=== PATIENT | male | born 1970 | race African-American/Black ===

== ENCOUNTER 2020-05-10 02:28 | Inpatient (IN) | payer OTHER ==
[2020-05-10] MEDS ORDERED: Propofol 1,000 MG/100 ML VIAL IV ONE (02:52)
[2020-05-10 02:56] LABS: Actual Bicarbonate (HCO3a) 26.1 mEq/L (22-28); Analyzer IN Cardio ER; Base Excess (BEa) -1.9 mEq/L (-2.0 to +3.0); CO2 Tension 57.9 mmHg (35.0-45.0); Calcium, Ionized (arterial) 1.16 mmol/L (1.12-1.30); Carboxyhemoglobin (COHb) 0.1 gm% (0.0-3.0); Hemoglobin (Hb) 14.6 g/dL (14.0-18.0); O2 Tension (PaO2), arterial 287.7 mmHg (80.0-100.0); Potassium - ABG Lab 3.99 mmol/L (3.70-5.30); pH, Arterial 7.27 (7.35-7.45)
[2020-05-10 02:57] LABS: ALV-art Gradient 352.925 mmHg (0-20); Puncture Site RRA
[2020-05-10 03:12] LABS: #Lymphocytes 1.1 thou/uL (1.20-3.40); #Monocytes 0.2 thou/uL (0.11-0.59); %Basophils 0.5 % (0.0-1.0); %Eosinophils 0.4 % (0.0-10.0); %Lymphocytes 12.8 % (21.0-51.0); %Monocytes 2.5 % (0.0-10.0); %Neutrophils 83.8 % (42.0-75.0); Hemoglobin 13.7 g/dL (14.0-18.0); Mean Corpuscular HGB CONC 32.6 g/dL (32.0-36.0); Mean Corpuscular Hemoglobin 30.1 pg (27.0-31.0); Mean Corpuscular Volume 92.3 fL (78.0-98.0); Mean Platelet Volume 9.5 fL (7.4-10.4); Platelet Count 158 thou/uL (130-400); Red Blood Cell (RBC) Count 4.55 mill/uL (4.70-6.10); White Blood Cell (WBC) Count 8.4 thou/uL (4.8-10.8)
[2020-05-10 03:20] LABS: INR-International Normal Ratio 1.1; PTT 30.6 sec (22.9-36.1); Prothrombin Time 14.7 sec (12.0-14.7)
[2020-05-10] MEDS ORDERED: niCARdipine 20MG In NaCl 20 MG/200 ML BAG ONE (03:29)
[2020-05-10 03:36] LABS: ALT (SGPT) 23 U/L (8-55); AST (SGOT) 30 U/L (5-34); Albumin 4.1 g/dL (3.5-5.0); Alkaline Phosphatase 73 U/L (40-110); Anion Gap 19 mmol/L (10-20); BUN (Urea Nitrogen) 20 mg/dL (8.4-25.7); Bilirubin, Total 0.2 mg/dL (0.2-1.2); CK (CPK) 397 U/L (30-200); Calc. Creatinine Clearance 0 mL/min (70-130); Calcium 8.6 mg/dL (7.8-10.44); Carbon Dioxide 22 mmol/L (22-29); Chloride 106 mmol/L (98-107); Estimated GFR-MDRD 57; Globulin 3.4 g/dL (2.4-3.5); Glucose 118 mg/dL (70-105); Potassium 4.7 mmol/L (3.5-5.1); Protein, Total 7.5 g/dL (6.0-8.3); Sodium 142 mmol/L (136-145)
[2020-05-10 03:46] LABS: CKMB 5.6 ng/mL (0-6.6)
--- NOTE | 2020-05-10 04:12 | PDOC.HHP ---
Hospitalist HPI - History of Present Illness cva evaluation History of Present Illness: most of the history taken from ems and emr. during my evaluation patient was sedated and on MV. no family members where present at the moment of my evaluation. Case of an 49y/o male with a pmxh of htn, hx of cva and seizures, patient brought to the ER by helicopter as a transfer from [place]. Transferring physician reported that the patient was last seen normal by his at 5 PM yesterday (9-1/2 hours ago). At 10:00 she reported that he was complaining of severe headache and his speech seemed impaired. She then elected to call 911. On his arrival to the outside hospital, he had right-sided facial droop and left- sided hemiparesis. He was taken to CAT scan where he had a seizure. He does have a history of seizures and takes Keppra. CT scan was able to be obtained which showed an subacute right posterior parietal infarct. Patient had several additional seizures requiring multiple doses of benzodiazepines. Eventually his respiratory drive was depressed and he was intubated. at arrival interventional neurologist was called, patient underwent CTA which showed no occlusion, patient has a hx of using elliquis and he was out of the TPA window for those reason TPA was not given. hospitalist was called for further evaluation and management. Hospitalist ROS - Review of Systems ROS unobtainable: due to endotracheal tube Hospitalist History - Past Surgical History Other Surgical History: unable to asses due to MV - Family History Other Family History: unable to asses due to MV - Social History Other Social History: unable to asses due to MV - Exam General Appearance: NAD General - other findings: sedated Eye: PERRL, anicteric sclera ENT: normocephalic atraumatic, no oropharyngeal lesions Neck: supple, symmetric, no JVD Heart: RRR, no murmur, no gallops, no rubs Respiratory: CTAB, no wheezes, no rales, no ronchi Gastrointestinal: soft, non-tender, non-distended, normal bowel sounds Extremities: no cyanosis, no clubbing, no edema Skin: normal turgor, no lesions, no rashes Neurological - other findings: sedated Musculoskeletal: normal tone, no muscle wasting Psychiatric - other findings: sedated Hospitalist Results - Labs Result Diagrams: 05/10/20 02:50 05/10/20 02:50 Lab results: WBC 8.4 thou/uL (4.8-10.8) 05/10/20 02:50 Hgb 13.7 g/dL (14.0-18.0) L 05/10/20 02:50 Hct 42.0 % (42.0-52.0) 05/10/20 02:50 MCV 92.3 fL (78.0-98.0) 05/10/20 02:50 Plt Count 158 thou/uL (130-400) 05/10/20 02:50 Neutrophils % 83.8 % (42.0-75.0) H 05/10/20 02:50 ABG pH 7.27 (7.35-7.45) L 05/10/20 02:50 ABG pCO2 57.9 mmHg (35.0-45.0) H 05/10/20 02:50 ABG pO2 287.7 mmHg (80.0-100.0) H 05/10/20 02:50 Sodium 142 mmol/L (136-145) 05/10/20 02:50 Potassium 4.7 mmol/L (3.5-5.1) 05/10/20 02:50 Chloride 106 mmol/L (98-107) 05/10/20 02:50 Carbon Dioxide 22 mmol/L (22-29) 05/10/20 02:50 BUN 20 mg/dL (8.4-25.7) 05/10/20 02:50 Creatinine 1.56 mg/dL (0.7-1.3) H 05/10/20 02:50 Glucose 118 mg/dL (70-105) H 05/10/20 02:50 Calcium 8.6 mg/dL (7.8-10.44) 05/10/20 02:50 Total Bilirubin 0.2 mg/dL (0.2-1.2) 05/10/20 02:50 AST 30 U/L (5-34) 05/10/20 02:50 ALT 23 U/L (8-55) 05/10/20 02:50 Alkaline Phosphatase 73 U/L (40-110) 05/10/20 02:50 Creatine Kinase 397 U/L (30-200) H 05/10/20 02:50 CK-MB (CK-2) 5.6 ng/mL (0-6.6) 05/10/20 02:50 Troponin I 0.032 ng/mL (< 0.028) H 05/10/20 02:50 Serum Total Protein 7.5 g/dL (6.0-8.3) 05/10/20 02:50 Albumin 4.1 g/dL (3.5-5.0) 05/10/20 02:50 Hospitalist H&P A/P - Problem (1) Respiratory failure requiring intubation Code(s): J96.90 - RESPIRATORY FAILURE, UNSP, UNSP W HYPOXIA OR HYPERCAPNIA Status: Acute (2) CVA (cerebral vascular accident) Code(s): I63.9 - CEREBRAL INFARCTION, UNSPECIFIED Status: Acute (3) Seizures Code(s): R56.9 - UNSPECIFIED CONVULSIONS Status: Acute (4) HTN (hypertension) Code(s): I10 - ESSENTIAL (PRIMARY) HYPERTENSION Status: Acute (5) History of CVA (cerebrovascular accident) Code(s): Z86.73 - PRSNL HX OF TIA (TIA), AND CEREB INFRC W/O RESID DEFICITS Status: Acute - Plan Plan: case of an 49y/o male with stated pmhx who presented to hospital due to cva + seziures respiratory failure requiring MV - intuabted to protect air way due to decreased GCS - pulmonology consulted CVA - hx of cva in the past - hx of slur speech and L sided hemiparesis - cta negative for occlusion - ct negative for bleed - will start with rectal asa for secondary prevention - statin for secondary prevention - neurologist consulted - will get MRI -2 decho - out of tpa window, clean cta, hx of xarelto use - reason for xarelto use, unclear mati seizures - multiple episode of seizures, required multiple doses of ativan - ativan prn - should be covered with sedation protocol - eeg - neurologist evaluation - keppra iv htn urgency - b/p over 220 systololic - started on cardene drip - mill maitain systolic b/p around 180 for permissive hypertension
[2020-05-10 04:23] LABS: Amphetamine Not Detected (NotDetected); Barbiturates Screen Not Detected (NotDetected); Benzodiazepine Screen Not Detected (NotDetected); Cocaine Metabolite Screen Not Detected (NotDetected); Medtox Control Line Valid? VALID (VALID); Medtox Reader # READER 1; Methadone Not Detected (NotDetected); Methamphetamine Not Detected (NotDetected); Opiate Screen Not Detected (NotDetected); Oxycodone Screen Not Detected (NotDetected); Phencyclidine (PCP) Not Detected (NotDetected); THC/Cannabinoid Screen Not Detected (NotDetected); Tricyclic Screen Not Detected (NotDetected)
[2020-05-10] MEDS ORDERED: DISCONTINUE PREVIOUS NARCOTIC PAIN MEDICATIONS AND BENZODIAZEPINES FS SCH (05:15)
[2020-05-10] MEDS ORDERED: Fentanyl BOLUS 250 ML IVPB PRN (05:15)
[2020-05-10] MEDS ORDERED: Lorazepam 2 MG/ML VIAL SLOW IVP PRN (05:15)
[2020-05-10] MEDS ORDERED: Propofol BOLUS 1,000 MG/100 ML VIAL IV PRN (05:15)
[2020-05-10] MEDS ORDERED: fentaNYL Citrate/PF 2,000 MCG in Sodium Chloride 0.9% 60 ML IV SCH (05:15)
[2020-05-10] MEDS ORDERED: Morphine 2 MG/ML VIAL SLOW IVP PRN (05:15)
[2020-05-10 05:57] VITALS: BMI 26.1
[2020-05-10] MEDS: Sodium Chloride 0.9% 1,000 ML IV SCH ×2 (06:35→22:44)
[2020-05-10 07:03] LABS: SARS-CoV-2 NAA Rapid Test Not Detected (NotDetected)
[2020-05-10] MEDS ORDERED: niCARdipine 25 MG in Sodium Chloride 0.9% 250 ML 240 ML IVPB SCH (07:30)
--- NOTE | 2020-05-10 08:03 | CT ---
PRELIMINARY REPORT/[facility]/EMERGENCY AFTER HOURS PROCEDURE: Receipt of this report by the clinical staff was confirmed with Monica Díaz MD by Roopa Nunez on May 10, 2020 02:49:00 CLIENT SUPPORT MANAGER. Addendum electronically signed by Kerry Nunez on May 10, 2020 2:50:05 AM CLIENT SUPPORT MANAGER EXAM: CT Head Without Intravenous Contrast. CLINICAL HISTORY: *LEVEL 1 STROKE* M49, LSN AT 1700. PATIENT COMPLAINED OF BLAIR AT 2200, STATED SPEECH WAS SLURRED, AMS, PATIENT STARTED SEIZING AT OTHER FACILITY WAS INTUBATED TECHNIQUE: Axial computed tomography images of the head/brain without intravenous contrast. COMPARISON: None provided. FINDINGS: BRAIN: No acute intraparenchymal hemorrhage. No mass lesion. No CT evidence for acute territorial infarct. N o midline shift or extra-axial collection. Geographic region of hypodensity in the right parietal lo be with ex vacuo dilatation of the right lateral ventricle. VENTRICLES: No hydrocephalus. ORBITS: The orbits are unremarkable. SINUSES AND MASTOIDS: The paranasal sinuses and mastoid air cells are clear. SOFT TISSUES: No significant facial or scalp soft tissue swelling evident. No radiopaque foreign body is seen. BONES: No acute skull fracture. IMPRESSION: No acute intracranial abnormality. Remote infarct in the right parietal lobe. ELECTRONICALLY SIGNED BY: Anibal Reed MD May 10, 2020 2:44:04 AM CLIENT SUPPORT MANAGER This report is intended for review by the ordering physician only, in accordance of law. If you recei ve this report in error, please call [facility] at [phone]. FINAL REPORT CT BRAIN WITHOUT CONTRAST: I agree with the preliminary report given by [facility]. POS: OFF
[2020-05-10 08:32] LABS: Actual Bicarbonate (HCO3a) 24.3 mEq/L (22-28); Base Excess (BEa) 1.5 mEq/L (-2.0 to +3.0); CO2 Tension 33.1 mmHg (35.0-45.0); Calcium, Ionized (arterial) 1.16 mmol/L (1.12-1.30); Carboxyhemoglobin (COHb) 0.6 gm% (0.0-3.0); Hemoglobin (Hb) 15.6 g/dL (14.0-18.0); O2 Tension (PaO2), arterial 97.4 mmHg (80.0-100.0); Potassium - ABG Lab 3.31 mmol/L (3.70-5.30); pH, Arterial 7.48 (7.35-7.45)
[2020-05-10 08:39] LABS: ALV-art Gradient 146.425 mmHg (0-20); Puncture Site RRA
[2020-05-10] MEDS: Famotidine/PF 20 mg/2ml Vial SLOW IVP SCH ×2 (09:10→22:45)
--- NOTE | 2020-05-10 09:10 | CT ---
PRELIMINARY REPORT/[facility]/EMERGENCY AFTER HOURS PROCEDURE Receipt of this report by the clinical staff was confirmed with Monica Díaz MD by Roopa Nunez on May 10, 2020 03:01:00 TRAINING PROGRAM MANAGER. Addendum electronically signed by Kerry Nunez on May 10, 2020 3:01:29 AM TRAINING PROGRAM MANAGER EXAM: CTA Head and Neck with Intravenous Contrast. CLINICAL HISTORY: *LEVEL 1 STROKE* M49, LSN AT 1700. PATIENT COMPLAINED OF BLAIR AT 2200, STATED SPEECH WAS SLURRED, AMS, PATIENT STARTED SEIZING AT OTHER FACILITY WAS INTUBATED. TECHNIQUE: Axial CTA images of the head and neck performed with intravenous contrast. Two-dimensional MIP and/or three-dimensional MIP and volume rendered reformations were performed. Note: Per PQRS, the description of internal carotid artery percent stenosis, including 0 percent or n ormal exam, is based on [place] Symptomatic Carotid Endarterectomy Trial (NASCET) criteria. CONTRAST: With; ISOVUE 370,100mL COMPARISON: None provided. FINDINGS: CTA NECK: COMMON CAROTID ARTERIES No significant stenosis. No dissection or occlusion. INTERNAL CAROTID ARTERIES No stenosis by NASCET criteria. No dissection or occlusion. VERTEBRAL ARTERIES No significant stenosis. No dissection or occlusion. CTA HEAD: ANTERIOR CEREBRAL ARTERIES No significant stenosis. No occlusion. No aneurysm. MIDDLE CEREBRAL ARTERIES No significant stenosis. No occlusion. No aneurysm. POSTERIOR CEREBRAL ARTERIES No significant stenosis. No occlusion. No aneurysm. BASILAR ARTERY No significant stenosis. No occlusion. No aneurysm. OTHER: SOFT TISSUES No acute finding. No masses or lymphadenopathy. An endotracheal tube and nasogastric tube are in diaz ce. BONES No acute osseous abnormality. Multilevel degenerative disc disease. IMPRESSION: Unremarkable CTA of the head and neck. ELECTRONICALLY SIGNED BY: Anibal Reed MD May 10, 2020 2:56:22 AM TRAINING PROGRAM MANAGER This report is intended for review by the ordering physician only, in accordance of law. If you recei ve this report in error, please call [facility] at [phone]. FINAL REPORT EXAM: CT ANGIOGRAM OF THE HEAD AND NECK INDICATION: Level 1 stroke. COMPARISON: None. TECHNIQUE: CT angiogram of the head and neck are performed in the axial plane. Three-dimensional refo rmatted images are submitted for interpretation. FINDINGS: CTA OF THE HEAD WITH AND WITHOUT CONTRAST: POSTCONTRAST CT OF BRAIN: Pathologic enhancement: No pathologic enhancement the brain. Postcontrast soft tissue neck CT: Aerodigestive tract:Aerodigestive tract is patent. No mucosal abnormality. Sinuses: Adequate aeration. Orbits: Bilateral ocular lenses are appropriately located. Both globes are intact. Retrobulbar fat is preserved. Symmetric attenuation the optic nerves and ocular rectus muscles. Salivary glands:Appropriate attenuation. Thyroid gland: Appropriate attenuation. Lymph nodes: No evidence of lymphadenopathy by size criteria. Paraspinal muscles: Symmetric attenuation of the sternocleidomastoid muscles. Appropriate attenuation of the paraspinal muscles. Cervical spine:Vertebral body height is maintained. No fracture. No significant central canal stenosi s or significant neural foraminal narrowing. Limited evaluation by technique. Upper mediastinum and lung apices: No acute abnormality. CTA OF THE NECK WITH CONTRAST: Aorta: Appropriate enhancement and luminal diameter. Right carotid artery: Appropriate enhancement and luminal diameter. Left carotid: Appropriate enhancement and luminal diameter. Subclavian arteries:Patent and symmetric. Vertebral arteries:Patent throughout their course in the neck. Codominant vertebral arteries. CTA OF THE BRAIN: Intracranial internal carotid arteries:Appropriate enhancement and luminal diameter. Anterior circulation: Appropriate enhancement and luminal diameter. Intracranial vertebral arteries: Appropriate enhancement and luminal diameter. Posterior circulation: Appropriate enhancement and luminal diameter. IMPRESSION: 1. This report is in agreement with initial report by [facility]. 2. No hemodynamically significant stenosis, occlusion or aneurysmal formation. Transcribed Date/Time: 05/10/2020 9:22 AM
[2020-05-10] MEDS ORDERED: Iopamidol-370 76% 500 ML 1 ML ONE (10:16)
[2020-05-10] MEDS: levETIRAcetam in NS 1,500 MG in Premix Bag 1 BAG IVPB SCH ×2 (10:34→22:44)
[2020-05-10] MEDS ORDERED: Lorazepam 2 MG/ML VIAL ONE (10:55)
[2020-05-10] MEDS ORDERED: Lorazepam 2 MG/ML VIAL SLOW IVP SCH (11:00)
[2020-05-10] MEDS ORDERED: levETIRAcetam in NS 1,500 MG in Premix Bag 1 BAG IVPB SCH (11:00)
[2020-05-10] MEDS ORDERED: FOSPHENYTOIN SODIUM IVPB SCH (11:30)
[2020-05-10] MEDS ORDERED: SODIUM CHLORIDE 0.9% IVPB SCH (11:30)
[2020-05-10] MEDS: Aspirin 300 MG Suppository PR SCH (13:20)
[2020-05-10] MEDS: Propofol 1,000 MG/100 ML VIAL IV PRN ×2 (13:37→22:44)
[2020-05-10] MEDS ORDERED: Acetaminophen 650 MG/20.3 ML UDCUP PER TUBE PRN (13:43)
--- NOTE | 2020-05-10 14:29 | CON ---
NEUROLOGY CONSULTATION DATE OF CONSULTATION: 05/10/2020 REASON FOR CONSULTATION: CVA/focal status epilepticus. HISTORY OF PRESENT ILLNESS: The patient is currently sedated and intubated, and there is no family at bedside, so history was obtained from review of the medical records and from the nursing staff. Mr. Jorge is a 49-year-old male with medical history significant for hypertension, history of prior CVA, and seizure disorder, presented to the emergency room by helicopter as a transfer from [place]. The patient was last seen normal by his around 5 p.m. yesterday 9-1/2 hours ago; at 10 p.m., he reported he was complaining of severe headache with slurred speech. She called 911, and then they arrived. He also had right facial droop and left hemiparesis. He was taken to the CT scan where he had a seizure. He does have history of seizures and he takes Keppra for seizure prophylaxis. CT scan was obtained, which showed subacute right posterior parietal infarct. The patient had several seizures and required multiple doses of benzodiazepine, and he was intubated and sedated to protect his airway. He underwent a CTA, which did not reveal any occlusion. He has history of using Eliquis and was out of the window for tPA, so tPA was not given. Neurology was called for further evaluation. EEG was done, which was consistent with focal right status epilepticus. REVIEW OF SYSTEMS: Unobtainable due to the patient's mental status and due to endotracheal tube_. PAST SURGICAL HISTORY: None. FAMILY HISTORY: No significant family history. SOCIAL HISTORY: . Lives with his HOME MEDICATIONS: Not known. ALLERGIES: NKDA PHYSICAL EXAMINATION: 175/106 , pulse 80, and respiratory rate 18. General Appearance: NAD General - other findings: sedated Eye: PERRL, anicteric sclera ENT: normocephalic atraumatic, no oropharyngeal lesions Neck: supple, symmetric, no JVD Heart: RRR, no murmur, no gallops, no rubs Respiratory: CTAB, no wheezes, no rales, no ronchi Gastrointestinal: soft, non-tender, non-distended, normal bowel sounds Extremities: no cyanosis, no clubbing, no edema Skin: normal turgor, no lesions, no rashes Neurological - Mental status, the patient was intubated and sedated. Does not follow commands. Does not maintain eye contact. Cranial nerves; pupils 4 mm, round and reactive to light. Face symmetric. Tongue midline. Corneals positive. Cough positive. Motor, muscle tone and bulk are normal. No spontaneous movement of all 4 extremities seen. Sensory withdraws all 4 extremities to nailbed pressure. Gait deferred due to the patient's safety reasons. Cerebellar could not be performed secondary to sedation. DATA REVIEWED: I reviewed the labs, which were essentially unremarkable. Head CT was reviewed, which did not reveal any acute intracranial pathology. There was a geographical region hypodensity in the right parietal lobe with ex vacuo dilatation of the right lateral ventricle. EEG reviewed, which was consistent with focal status epilepticus characterized by continuous spike and wave discharges emanating from the right cerebral hemisphere. WBC 8.4 thou/uL (4.8-10.8) 05/10/20 02:50 Hgb 13.7 g/dL (14.0-18.0) L 05/10/20 02:50 Hct 42.0 % (42.0-52.0) 05/10/20 02:50 MCV 92.3 fL (78.0-98.0) 05/10/20 02:50 Plt Count 158 thou/uL (130-400) 05/10/20 02:50 Neutrophils % 83.8 % (42.0-75.0) H 05/10/20 02:50 ABG pH 7.27 (7.35-7.45) L 05/10/20 02:50 ABG pCO2 57.9 mmHg (35.0-45.0) H 05/10/20 02:50 ABG pO2 287.7 mmHg (80.0-100.0) H 05/10/20 02:50 Sodium 142 mmol/L (136-145) 05/10/20 02:50 Potassium 4.7 mmol/L (3.5-5.1) 05/10/20 02:50 Chloride 106 mmol/L (98-107) 05/10/20 02:50 Carbon Dioxide 22 mmol/L (22-29) 05/10/20 02:50 BUN 20 mg/dL (8.4-25.7) 05/10/20 02:50 Creatinine 1.56 mg/dL (0.7-1.3) H 05/10/20 02:50 Glucose 118 mg/dL (70-105) H 05/10/20 02:50 Calcium 8.6 mg/dL (7.8-10.44) 05/10/20 02:50 Total Bilirubin 0.2 mg/dL (0.2-1.2) 05/10/20 02:50 AST 30 U/L (5-34) 05/10/20 02:50 ALT 23 U/L (8-55) 05/10/20 02:50 Alkaline Phosphatase 73 U/L (40-110) 05/10/20 02:50 Creatine Kinase 397 U/L (30-200) H 05/10/20 02:50 CK-MB (CK-2) 5.6 ng/mL (0-6.6) 05/10/20 02:50 Troponin I 0.032 ng/mL (< 0.028) H 05/10/20 02:50 Serum Total Protein 7.5 g/dL (6.0-8.3) 05/10/20 02:50 Albumin 4.1 g/dL (3.5-5.0) 05/10/20 02:50 Hospitalist H&P A/P - Problem (1) Respiratory failure requiring intubation Code(s): J96.90 - RESPIRATORY FAILURE, UNSP, UNSP W HYPOXIA OR HYPERCAPNIA Status: Acute (2) CVA (cerebral vascular accident) Code(s): I63.9 - CEREBRAL INFARCTION, UNSPECIFIED Status: Acute (3) Seizures Code(s): R56.9 - UNSPECIFIED CONVULSIONS Status: Acute (4) HTN (hypertension) Code(s): I10 - ESSENTIAL (PRIMARY) HYPERTENSION Status: Acute (5) History of CVA (cerebrovascular accident) Code(s): Z86.73 - PRSNL HX OF TIA (TIA), AND CEREB INFRC W/O RESID DEFICITS Status: Acute ASSESSMENT AND PLAN: Mr. Jorge is a 49-year-old male with history significant for seizure disorder and prior cerebrovascular accident, presented with stroke-like symptoms and subclinical status epilepticus confirmed the EEG. Neurochecks every 2 hours. Continue propofol for pharmacologically induced coma. Load with Keppra 3 g IV now and then increase the maintenance dose to 1500 mg IV q.12 hours, also load with fosphenytoin to 20 mg/kg now and then start on a maintenance dose of 100 mg IV q.8 hours, Ativan 4 mg IV now and observe seizure precautions. Ativan 2 mg IV for seizure greater than 2 minutes. He needs a further stroke workup including MRI of the brain and 2D echo. Start aspirin for secondary stroke prevention. Need to be started on high intensity statin. We do not have the capability of continuous video EEG monitoring to manage focal status epilepticus remotely, so the patient needs to be transferred to another facility. The plan and EEG findings were discussed in detail with the nursing staff and also with the primary attending, Dr. Best. Thank you for the consult. Job ID: [id number] [id number]
--- NOTE | 2020-05-10 15:27 | PDOC.DS.DS ---
Provider - Provider Date of Admission: 05/10/20 03:35 Date of Discharge: 05/10/20 Admitting Provider: John Fernandez Consultations: Neurology (Dr. Estrada), Interventional Stroke (Dr. Alegria) Primary Care Physician: OUT OF TOWN Course - Hospital Course Hospital Course: Discharge diagnosis: 1. focal status epilepticus 2. Ischemic cerebrovascular accident 3. Acute respiratory failure 4. COVID-19 PCR test negative Hospital course: Patient is a 49-year-old gentleman who was admitted to the hospital for seizure and cerebrovascular accident after transfer from [place]. He was admitted to the intensive care unit in an intubated state. He received loading doses of Keppra and fosphenytoin. EEG was done and showed focal status epilepticus. He needed transfer to tertiary care center for video EEG continuous monitoring. He has been accepted to [facility] and is awaiting transfer at the time of this dictation. Resuscitation Status: 05/10/20 04:00 Resuscitation Status Routine Resuscitation Status: FULL: Full Resuscitation - Labs Lab Results: 05/10/20 02:50 05/10/20 02:50 Abnormal Lab Results - Last 48 hrs 05/10/20 02:50: ABG pH 7.27 L, ABG pCO2 57.9 H, ABG pO2 287.7 H, ABG O2 Sat (Measured) 99.3 H, ABG Oxyhemoglobin 98.6 H, A-a O2 Gradient 352.925 H 05/10/20 02:50: Creatinine 1.56 H, Creatine Kinase 397 H 05/10/20 02:50: Troponin I 0.032 H 05/10/20 02:50: RBC 4.55 L, Hgb 13.7 L, Neutrophils % 83.8 H, Lymphocytes % 12.8 L, Neutrophils # 7.0 H, Lymphocytes # 1.1 L 05/10/20 08:15: ABG pH 7.48 H, ABG pCO2 33.1 L, ABG O2 Content 21.3 H, A-a O2 Gradient 146.425 H, Potassium 3.31 L - Physical Exam Vitals: Vital Signs (12 hours) Temp Pulse Resp BP Pulse Ox 05/10/20 14:47 81 133/84 05/10/20 13:21 87 175/106 H 05/10/20 12:00 16 05/10/20 10:11 95 155/93 H 05/10/20 10:00 18 05/10/20 08:11 107 H 162/92 H 05/10/20 08:00 99.3 F 19 05/10/20 06:00 99.2 F 18 05/10/20 05:10 100 Weight Admit Weight 182 lb Weight 182 lb 1.629 oz Most Recent Monitor Data Heart Rate from ECG 81 NIBP 121/84 NIBP BP-Mean 96 Respiration from ECG 0 SpO2 100 Physical Exam: The patient was seen and examined on the day of discharge. Plan - Discharge Medications Home Medications: Medication Instructions Recorded Confirmed Type Amiodarone [Cordarone] 1 tab PO DAILY 05/10/20 05/10/20 History Amlodipine [Norvasc] 10 mg PO DAILY 05/10/20 05/10/20 History Apixaban [Eliquis] 5 mg PO BID 05/10/20 05/10/20 History Aspirin [Aspirin EC] 1 tab PO DAILY 05/10/20 05/10/20 History Atorvastatin Calcium 80 mg PO DAILY 05/10/20 05/10/20 History Diltiazem HCl 90 mg PO TID 05/10/20 05/10/20 History Ergocalciferol (Vitamin D2) 1 cap PO ROUTINE 05/10/20 05/10/20 History [Vitamin D2] Famotidine [Pepcid] 20 mg PO DAILY 05/10/20 05/10/20 History Furosemide 40 mg PO DAILY 05/10/20 05/10/20 History Labetalol HCl 300 mg PO Q8HR 05/10/20 05/10/20 History Levothyroxine Sodium 50 mcg PO DAILY 05/10/20 05/10/20 History Lisinopril 10 mg PO DAILY 05/10/20 05/10/20 History Metoprolol Tartrate 100 mg PO BID 05/10/20 05/10/20 History Potassium Chloride 20 meq PO DAILY 05/10/20 05/10/20 History Sertraline HCl 75 mg PO QAM 05/10/20 05/10/20 History cloNIDine HCl 0.1 mg PO TID 05/10/20 05/10/20 History hydrALAZINE HCl 100 mg PO TID 05/10/20 05/10/20 History levETIRAcetam 1,000 mg PO BID 05/10/20 05/10/20 History traZODone HCl [Trazodone HCl] 100 mg PO HS 05/10/20 05/10/20 History Allergies: No Known Drug Allergies Allergy (Unverified 05/10/20 04:14) - Follow up Plan Referrals: [facility],OUT OF [Primary Care Provider] - 10 Days Disposition: OTHER HOSPITAL INPT
--- NOTE | 2020-05-10 15:35 | PDOC.EEG ---
Neurology EEG Report - Report Report: This EEG was performed using 24 channel [employer] video digital EEG machine with 24 disc electrodes. This was an extended 5 hours 47 minutes of inpatient video EEG recording. Digital analysis of the EEG was done for Robert and seizure detection which revealed abnormalities Background: The posterior background rhythm is not observed Hyperventilation: Not performed. Photic stimulation. Bioccipital symmetric response not seen with photic stimulation. EEG diagnosis: Pseudo-periodic epilepstic discharges seen emanating from the right cerebral hemisphere. Intermittent irregular theta delta activity seen during the recording Absence of posterior background rhythm. Clinical interpretation: This EEG is consistent with ictal activity emanating from the right in the setting of moderate generalized nonspecific cerebral dysfunction. Critical result was discussed with the primary attending Dr. Best and also the nursing staff and .
[2020-05-10] MEDS: Fosphenytoin Sodium 100 MG in Sodium Chloride 0.9% 50 ML IVPB SCH ×2 (17:22→17:45)
--- NOTE | 2020-05-10 22:10 | CON ---
DATE OF CONSULTATION: SUBJECTIVE: A 49-year-old male, who was transferred here from [place] for reported CVA and seizures. He has pre-existing seizure disorder. He is felt to intermittently still be seizing. CT scan did not show a stroke. He is intubated and unable to give a history. PAST MEDICAL HISTORY: 1. Remarkable for seizure disorder. 2. History of hypertension. 3. History of CVA in the past. FAMILY HISTORY: Unknown. SOCIAL HISTORY: Unknown. REVIEW OF SYSTEMS: Not obtainable. PHYSICAL EXAMINATION: VITAL SIGNS: Heart rate in the 70s, blood pressure 120/74, respiratory rate is per mechanical ventilation, oximetry is 100%. HEENT: Pupils react. Sclerae are anicteric. NECK: Without lymphadenopathy. LUNGS: Clear. HEART: Regular rhythm. ABDOMEN: Soft. EXTREMITIES: Without asymmetry or edema. He is sedated for ventilation. DIAGNOSTIC DATA: Continuous EEG monitoring being done. White count 8.4, hemoglobin 13.7, platelets 158. Electrolytes are normal. Creatinine is 1.56. CPK 397. IMPRESSION: 1. Status epilepticus. 2. History of CVA. I am told he is being transferred to [facility] in [place] since his seizures are refractory. He is stable for transfer in my opinion. Job ID: [id number]
[2020-05-10] MEDS: Atorvastatin Calcium 40 MG TAB PO SCH (22:45)
[2020-05-11] MEDS: Lorazepam 2 MG/ML VIAL SLOW IVP PRN ×5 (01:05→22:04)
[2020-05-11] MEDS: Fosphenytoin Sodium 100 MG in Sodium Chloride 0.9% 50 ML IVPB SCH ×5 (01:07→17:19)
[2020-05-11 04:02] LABS: ALT (SGPT) 15 U/L (8-55); AST (SGOT) 16 U/L (5-34); Albumin 3.1 g/dL (3.5-5.0); Alkaline Phosphatase 45 U/L (40-110); Anion Gap 13 mmol/L (10-20); BUN (Urea Nitrogen) 22 mg/dL (8.4-25.7); Bilirubin, Total 0.4 mg/dL (0.2-1.2); Calc. Creatinine Clearance 49 mL/min (70-130); Calcium 8.4 mg/dL (7.8-10.44); Carbon Dioxide 24 mmol/L (22-29); Cardiac Risk 2.5 (Less than 4.5); Chloride 110 mmol/L (98-107); Cholesterol 83 mg/dl (< 200 Desired); Estimated GFR-MDRD 41; Glucose 104 mg/dL (70-105); HDL Cholesterol 33 mg/dL (>60 Neg Risk); LDL Cholesterol, Calculated 38 mg/dL; Magnesium 1.6 mg/dL (1.6-2.6); Potassium 3.3 mmol/L (3.5-5.1); Protein, Total 6.1 g/dL (6.0-8.3); Sodium 144 mmol/L (136-145); Triglycerides 60 mg/dL (Less than 150)
[2020-05-11 04:14] LABS: Eosinophils 2 % (0-10); Hemoglobin 12.8 g/dL (14.0-18.0); Lymphocytes 19 % (21-51); MDiff Complete? YES; Mean Corpuscular HGB CONC 33.7 g/dL (32.0-36.0); Mean Corpuscular Hemoglobin 31.2 pg (27.0-31.0); Mean Corpuscular Volume 92.5 fL (78.0-98.0); Monocytes 9 % (0-10); Neutrophil 69 % (42-75); Platelet Count 144 thou/uL (130-400); Platelet Morphology Comment Appears Adequate; Reactive Lymphocytes 1 % (0-10); Red Blood Cell (RBC) Count 4.09 mill/uL (4.70-6.10); White Blood Cell (WBC) Count 6.7 thou/uL (4.8-10.8)
[2020-05-11] MEDS: Propofol 1,000 MG/100 ML VIAL IV PRN ×4 (05:54→21:19)
[2020-05-11] MEDS: Sodium Chloride 0.9% 1,000 ML IV SCH ×2 (05:56→17:17)
[2020-05-11] MEDS: Aspirin 300 MG Suppository PR SCH (08:10)
[2020-05-11] MEDS: Famotidine/PF 20 mg/2ml Vial SLOW IVP SCH ×2 (08:10→19:57)
[2020-05-11] MEDS: levETIRAcetam in NS 1,500 MG in Premix Bag 1 BAG IVPB SCH ×2 (08:10→19:56)
[2020-05-11 10:13] VITALS: BP 134/99
--- NOTE | 2020-05-11 10:23 | MRI ---
Exam: Brain MRI without contrast HISTORY: Evaluate for stroke COMPARISON: None FINDINGS: Calvarial marrow signal intensity: Appropriate T1 signal Gradient echo sequence: No hemorrhage Brain parenchyma: Encephalomalacia and gliosis involving the right occipital parietal and temporal re gion. The cerebrum is unremarkable. Cortical estrada-white matter differentiation: With the exception of the area of encephalomalacia and gl iosis, estrada-white matter differentiation is preserved. Restricted diffusion: Central arterial flow voids are maintained. Absent restricted diffusion White matter signal intensities:Minimal T2, FLAIR white matter hyperintensities due to chronic small vessel ischemic changes Sinuses: Bilateral ethmoid air cell and frontal sinus mucosal thickening. There is bilateral sphenoid sinus mucosal thickening along with an air-fluid level in the left and right sinus. Minimal opacification of the mastoid air cells. IMPRESSION: 1. Encephalomalacia and gliosis involving the posterior right cerebrum due to remote insult. 2. No evidence of restricted diffusion. No evidence of acute infarction.
--- NOTE | 2020-05-11 10:48 | CT ---
PRELIMINARY REPORT/[facility]/EMERGENCY AFTER HOURS PROCEDURE Receipt of this report by the clinical staff was confirmed with Monica Díaz MD by Roopa Nunez on May 10, 2020 03:01:00 SEALING MACHINE OPERATOR. Addendum electronically signed by Kerry Nunez on May 10, 2020 3:01:29 AM SEALING MACHINE OPERATOR EXAM: CTA Head and Neck with Intravenous Contrast. CLINICAL HISTORY: *LEVEL 1 STROKE* M51, LSN AT 1700. PATIENT COMPLAINED OF BLAIR AT 2200, STATED SPEECH WAS SLURRED, AMS, PATIENT STARTED SEIZING AT OTHER FACILITY WAS INTUBATED. TECHNIQUE: Axial CTA images of the head and neck performed with intravenous contrast. Two-dimensional MIP and/or three-dimensional MIP and volume rendered reformations were performed. Note: Per PQRS, the description of internal carotid artery percent stenosis, including 0 percent or n ormal exam, is based on [place] Symptomatic Carotid Endarterectomy Trial (NASCET) criteria. CONTRAST: With; ISOVUE 370,100mL COMPARISON: None provided. FINDINGS: CTA NECK: COMMON CAROTID ARTERIES No significant stenosis. No dissection or occlusion. INTERNAL CAROTID ARTERIES No stenosis by NASCET criteria. No dissection or occlusion. VERTEBRAL ARTERIES No significant stenosis. No dissection or occlusion. CTA HEAD: ANTERIOR CEREBRAL ARTERIES No significant stenosis. No occlusion. No aneurysm. MIDDLE CEREBRAL ARTERIES No significant stenosis. No occlusion. No aneurysm. POSTERIOR CEREBRAL ARTERIES No significant stenosis. No occlusion. No aneurysm. BASILAR ARTERY No significant stenosis. No occlusion. No aneurysm. OTHER: SOFT TISSUES No acute finding. No masses or lymphadenopathy. An endotracheal tube and nasogastric tube are in diaz ce. BONES No acute osseous abnormality. Multilevel degenerative disc disease. IMPRESSION: Unremarkable CTA of the head and neck. ELECTRONICALLY SIGNED BY: Anibal Reed MD May 10, 2020 2:56:22 AM SEALING MACHINE OPERATOR This report is intended for review by the ordering physician only, in accordance of law. If you recei ve this report in error, please call [facility] at [phone]. FINAL REPORT EXAM: CT ANGIOGRAM OF THE HEAD AND NECK INDICATION: Level 1 stroke. COMPARISON: None. TECHNIQUE: CT angiogram of the head and neck are performed in the axial plane. Three-dimensional refo rmatted images are submitted for interpretation. FINDINGS: CTA OF THE HEAD WITH AND WITHOUT CONTRAST: POSTCONTRAST CT OF BRAIN: Pathologic enhancement: No pathologic enhancement the brain. Postcontrast soft tissue neck CT: Aerodigestive tract:Aerodigestive tract is patent. No mucosal abnormality. Sinuses: Adequate aeration. Orbits: Bilateral ocular lenses are appropriately located. Both globes are intact. Retrobulbar fat is preserved. Symmetric attenuation the optic nerves and ocular rectus muscles. Salivary glands:Appropriate attenuation. Thyroid gland: Appropriate attenuation. Lymph nodes: No evidence of lymphadenopathy by size criteria. Paraspinal muscles: Symmetric attenuation of the sternocleidomastoid muscles. Appropriate attenuation of the paraspinal muscles. Cervical spine:Vertebral body height is maintained. No fracture. No significant central canal stenosi s or significant neural foraminal narrowing. Limited evaluation by technique. Upper mediastinum and lung apices: No acute abnormality. CTA OF THE NECK WITH CONTRAST: Aorta: Appropriate enhancement and luminal diameter. Right carotid artery: Appropriate enhancement and luminal diameter. Left carotid: Appropriate enhancement and luminal diameter. Subclavian arteries:Patent and symmetric. Vertebral arteries:Patent throughout their course in the neck. Codominant vertebral arteries. CTA OF THE BRAIN: Intracranial internal carotid arteries:Appropriate enhancement and luminal diameter. Anterior circulation: Appropriate enhancement and luminal diameter. Intracranial vertebral arteries: Appropriate enhancement and luminal diameter. Posterior circulation: Appropriate enhancement and luminal diameter. IMPRESSION: 1. This report is in agreement with initial report by [facility]. 2. No hemodynamically significant stenosis, occlusion or aneurysmal formation. Transcribed Date/Time: 05/11/2020 10:48 AM
--- NOTE | 2020-05-11 14:13 | PDOC.NEUPN ---
- Subjective Encounter Date: 05/11/20 Subjective: Mr. Jorge continues to remain intubated and sedated. He has been accepted by facility in [place] for continuous video EEG monitoring once a bed becomes available. - Objective Vital Signs & Weight: Vital Signs (12 hours) Temp Pulse Resp BP 05/11/20 12:00 99.4 F 05/11/20 10:12 71 134/99 H 05/11/20 08:00 99.6 F 05/11/20 06:58 68 05/11/20 06:00 16 05/11/20 04:00 98.4 F 17 Weight Admit Weight 182 lb Weight 185 lb 6.54 oz Most Recent Monitor Data Heart Rate from ECG 70 NIBP 134/99 NIBP BP-Mean 110 Respiration from ECG 0 SpO2 100 I&O: 05/10/20 05/11/20 05/12/20 06:59 06:59 06:59 Intake Total 1000 1325.1 Output Total 950 1475 150 Balance 50 -149.9 -150 Result Diagrams: 05/11/20 03:28 05/11/20 03:28 Radiology Reviewed by me: Yes EKG Reviewed by me: Yes ROS - Review of Systems ROS unobtainable: due to endotracheal tube - Medication Medications: Active Medications Generic Name Dose Route Start Last Admin Trade Name Freq PRN Reason Stop Dose Admin Acetaminophen 650 mg 05/10/20 13:43 05/10/20 14:11 Acetaminophen 650 Mg/20.3 Ml Udcup PER TUBE 650 mg Q6H PRN Administration Headache/Fever or Pain Aspirin 300 mg 05/10/20 09:00 05/11/20 08:10 Aspirin 300 Mg Suppository AR 300 mg DAILY PEARL Administration Atorvastatin Calcium 40 mg 05/10/20 21:00 05/10/20 22:45 Atorvastatin Calcium 40 Mg Tab PO 40 mg HS PEARL Administration Famotidine 20 mg 05/10/20 09:00 05/11/20 08:10 Famotidine/Pf 20 Mg/2ml Vial SLOW IVP 20 mg Q12HR PEARL Administration Sodium Chloride 1,000 mls @ 80 mls/hr 05/10/20 04:00 05/11/20 05:56 Normal Saline 0.9% IV 1,000 mls .[id number] PEARL Administration Levetiracetam 1,500 mg/ Device 100 mls @ 200 mls/hr 05/10/20 09:00 05/11/20 08:10 IVPB 100 mls BID PEARL Administration Fosphenytoin Sodium 100 mg/ 52 mls @ 100 mls/hr 05/10/20 18:00 05/11/20 13:32 Sodium Chloride IVPB 52 mls Q6HR PEARL Administration Lorazepam 2 mg 05/10/20 04:00 05/11/20 13:38 Lorazepam 2 Mg/Ml Vial SLOW IVP 2 mg Q15MIN PRN Administration Seizures Propofol 1,000 mg 05/10/20 05:15 05/11/20 11:30 Propofol 1,000 Mg/100 Ml Vial IV 06/09/20 05:15 1,000 mg INF PRN Administration TO ACHIEVE GOAL RASS Protocol - Exam General Appearance: NAD Eye: PERRL ENT: normocephalic atraumatic Neck: supple Respiratory: CTAB Cardiovascular: RRR Gastrointestinal: soft Extremities: no cyanosis Skin: normal turgor Neurological: no new deficit Musculoskeletal: normal tone, no muscle wasting PSYCH: not oriented Results - Labs Result Diagrams: 05/11/20 03:28 05/11/20 03:28 Lab results: WBC 6.7 thou/uL (4.8-10.8) 05/11/20 03:28 Hgb 12.8 g/dL (14.0-18.0) L 05/11/20 03:28 Hct 37.8 % (42.0-52.0) L 05/11/20 03:28 MCV 92.5 fL (78.0-98.0) 05/11/20 03:28 Plt Count 144 thou/uL (130-400) 05/11/20 03:28 Neutrophils % 83.8 % (42.0-75.0) H 05/10/20 02:50 ABG pH 7.48 (7.35-7.45) H 05/10/20 08:15 ABG pCO2 33.1 mmHg (35.0-45.0) L 05/10/20 08:15 ABG pO2 97.4 mmHg (80.0-100.0) 05/10/20 08:15 Sodium 144 mmol/L (136-145) 05/11/20 03:28 Potassium 3.3 mmol/L (3.5-5.1) L 05/11/20 03:28 Chloride 110 mmol/L (98-107) H 05/11/20 03:28 Carbon Dioxide 24 mmol/L (22-29) 05/11/20 03:28 BUN 22 mg/dL (8.4-25.7) 05/11/20 03:28 Creatinine 2.09 mg/dL (0.7-1.3) H 05/11/20 03:28 Glucose 104 mg/dL (70-105) 05/11/20 03:28 Calcium 8.4 mg/dL (7.8-10.44) 05/11/20 03:28 Total Bilirubin 0.4 mg/dL (0.2-1.2) 05/11/20 03:28 AST 16 U/L (5-34) 05/11/20 03:28 ALT 15 U/L (8-55) 05/11/20 03:28 Alkaline Phosphatase 45 U/L (40-110) 05/11/20 03:28 Creatine Kinase 397 U/L (30-200) H 05/10/20 02:50 CK-MB (CK-2) 5.6 ng/mL (0-6.6) 05/10/20 02:50 Troponin I 0.032 ng/mL (< 0.028) H 05/10/20 02:50 Serum Total Protein 6.1 g/dL (6.0-8.3) 05/11/20 03:28 Albumin 3.1 g/dL (3.5-5.0) L 05/11/20 03:28 - Radiology Interpretation MRI - head Additional Comment: MRI of the brain reviewed which was negative for acute intracranial pathology. PN A/P (1) Status epilepticus Code(s): G40.901 - EPILEPSY, UNSP, NOT INTRACTABLE, WITH STATUS EPILEPTICUS Status: Acute (2) HTN (hypertension) Code(s): I10 - ESSENTIAL (PRIMARY) HYPERTENSION Status: Acute (3) History of CVA (cerebrovascular accident) Code(s): Z86.73 - PRSNL HX OF TIA (TIA), AND CEREB INFRC W/O RESID DEFICITS Status: Acute (4) Respiratory failure requiring intubation Code(s): J96.90 - RESPIRATORY FAILURE, UNSP, UNSP W HYPOXIA OR HYPERCAPNIA Status: Acute (5) Seizures Code(s): R56.9 - UNSPECIFIED CONVULSIONS Status: Acute - Plan Daily Plan: PT/OT, DVT proph w/SCDs Mr. Jorge is a 49-year-old male who presented with strokelike symptoms followed by multiple seizures requiring intubation and sedation. EEG performed which confirms right focal status epilepticus. MRI of the brain reviewed which was negative for acute intracranial pathology. EEG showed focal status epilepticus with spike and wave discharges emanating from the right cerebral hemisphere which is the region for old encephalomalacia from the prior stroke. He was given Ativan and loaded with fosphenytoin and Keppra. Neurochecks every 2 hours Observe seizure precautions Ativan 2 mg IV for seizure greater than 2 minutes Continue fosphenytoin 100 mg IV every 8 hours Continue Keppra 1500 mg IV every 12 hours We will repeat EEG today to see if any further adjustment is needed before his transfer to the facility in [place] for continuous video EEG monitoring and ongoing management for status epilepticus. Continue medical management per primary team and pulmonology. Plan discussed with the nursing staff and also with the primary attending Dr. Best.
[2020-05-11] MEDS ORDERED: Lacosamide 400 MG in Sodium Chloride 0.9% 50 ML IVPB SCH (15:15)
--- NOTE | 2020-05-11 15:46 | PRG ---
DATE OF SERVICE: 05/11/2020 SUBJECTIVE: Rafy Jorge has not been transferred yet. Repeat EEG showed some improvement. OBJECTIVE: VITAL SIGNS: Blood pressure 134/99, heart rate 75, respiratory rate 16. LUNGS: Clear. HEART: Regular rhythm. ABDOMEN: Soft. EXTREMITIES: Without edema. LABORATORY DATA: White count 6.7, hemoglobin 12.8, platelets 144. Sodium 144, potassium 3.3, chloride 110, bicarb 24, BUN 22, creatinine 2.09. PH 7.48, CO2 of 33, PO2 of 97. Intake and outputs, negative 149. IMPRESSION: 1. History of CVA. 2. Refractory seizures. 3. Acute on chronic kidney disease. 4. ? component of brain injury secondary to prolonged status. PLAN: Transfer to a center with continuous EEG monitoring per Neurology. He is stable for transfer. Job ID: [id number]
--- NOTE | 2020-05-11 16:06 | PDOC.EEG ---
Neurology EEG Report - Report Report: This EEG was performed using 24 channel Cenzic video digital EEG machine with 24 disc electrodes. This was an extended 2 hours 4 minutes of inpatient video EEG recording. Digital analysis of the EEG was done for Robert and seizure detection which revealed abnormalities Background: The posterior background rhythm is not observed Hyperventilation: Not performed. Photic stimulation. Bioccipital symmetric response not seen with photic stimulation. Sleep: No stage change was observed EEG diagnosis: Occasional sharp waves seen emanating from the right cerebral hemisphere. Intermittent irregular theta delta activity seen during the recording Absence of posterior background rhythm. Clinical interpretation: This EEG is consistent with interictal expression of partial epilepsy with potential epileptogenicity in the right cerebral hemisphere in the setting of moderate generalized nonspecific cerebral dysfunction. There is interval improvement since the prior study
--- NOTE | 2020-05-11 18:16 | PDOC.HOSPP ---
- Subjective Encounter Date: 05/11/20 Encounter Time: 11:30 Subjective: Patient seen for follow-up regarding acute respiratory failure. He remains intubated, could not complete review of systems. - Objective Vital Signs & Weight: Vital Signs (12 hours) Temp Pulse BP 05/11/20 16:00 99.2 F 05/11/20 14:38 75 134/99 H 05/11/20 12:00 99.4 F 05/11/20 10:12 71 134/99 H 05/11/20 08:00 99.6 F 05/11/20 06:58 68 Weight Admit Weight 182 lb Weight 185 lb 6.54 oz Most Recent Monitor Data Heart Rate from ECG 76 NIBP 134/99 NIBP BP-Mean 110 Respiration from ECG 9 SpO2 99 I&O: 05/10/20 05/11/20 05/12/20 06:59 06:59 06:59 Intake Total 1000 1325.1 Output Total 950 1475 300 Balance 50 -149.9 -300 Result Diagrams: 05/11/20 03:28 05/11/20 03:28 Additional Labs: Labs and MAR reviewed by me EKG Reviewed by me: Yes (Normal sinus rhythm on telemetry) Hospitalist ROS - Review of Systems ROS unobtainable: due to endotracheal tube - Medication Medications: Active Medications Generic Name Dose Route Start Last Admin Trade Name Freq PRN Reason Stop Dose Admin Acetaminophen 650 mg 05/10/20 13:43 05/10/20 14:11 Acetaminophen 650 Mg/20.3 Ml Udcup PER TUBE 650 mg Q6H PRN Administration Headache/Fever or Pain Aspirin 300 mg 05/10/20 09:00 05/11/20 08:10 Aspirin 300 Mg Suppository [place] 300 mg DAILY PEARL Administration Atorvastatin Calcium 40 mg 05/10/20 21:00 05/10/20 22:45 Atorvastatin Calcium 40 Mg Tab PO 40 mg HS PEARL Administration Famotidine 20 mg 05/10/20 09:00 05/11/20 08:10 Famotidine/Pf 20 Mg/2ml Vial SLOW IVP 20 mg Q12HR PEARL Administration Sodium Chloride 1,000 mls @ 80 mls/hr 05/10/20 04:00 05/11/20 17:17 Normal Saline 0.9% IV 1,000 mls .[id number] PEARL Administration Levetiracetam 1,500 mg/ Device 100 mls @ 200 mls/hr 05/10/20 09:00 05/11/20 08:10 IVPB 100 mls BID PEARL Administration Fosphenytoin Sodium 100 mg/ 52 mls @ 100 mls/hr 05/10/20 18:00 05/11/20 17:19 Sodium Chloride IVPB 52 mls Q6HR PEARL Administration Lorazepam 2 mg 05/10/20 04:00 05/11/20 15:38 Lorazepam 2 Mg/Ml Vial SLOW IVP 2 mg Q15MIN PRN Administration Seizures Propofol 1,000 mg 05/10/20 05:15 05/11/20 17:16 Propofol 1,000 Mg/100 Ml Vial IV 06/09/20 05:15 1,000 mg INF PRN Administration TO ACHIEVE GOAL RASS Protocol - Exam General - other findings: Intubated and mechanically ventilated Eye: anicteric sclera ENT: moist mucosa Neck: no thyromegaly, no lymphadenopathy Heart: RRR Respiratory: CTAB Gastrointestinal: soft, non-tender Skin: no rashes Neurological - other findings: Unable to assess Psychiatric - other findings: Unable to assess Hosp A/P - Plan -Assessment (1) Respiratory failure requiring intubation Code(s): J96.90 - RESPIRATORY FAILURE, UNSP, UNSP W HYPOXIA OR HYPERCAPNIA Status: Acute (2) CVA (cerebral vascular accident) Code(s): I63.9 - CEREBRAL INFARCTION, UNSPECIFIED Status: Acute (3) Seizures Code(s): R56.9 - UNSPECIFIED CONVULSIONS Status: Acute (4) HTN (hypertension) Code(s): I10 - ESSENTIAL (PRIMARY) HYPERTENSION Status: Chronic - Plan - intuabted to protect air way due to decreased GCS -Appreciate pulmonology service input -Continue rectal asa for secondary stroke prevention - statin for secondary prevention -Appreciate neurology service input - multiple episode of seizures, required multiple doses of ativan -He had an episode of witnessed seizure today. He has been started on Vimpat. Continue Keppra and fosphenytoin. -Patient is awaiting bed at [facility]. He needs continuous video EEG monitoring. -htn urgency resolved.
[2020-05-11] MEDS: Atorvastatin Calcium 40 MG TAB PO SCH (19:56)
[2020-05-11 19:59] VITALS: TEMP 98.7
[2020-05-12] MEDS ORDERED: Lacosamide 200 MG in Sodium Chloride 0.9% 50 ML IVPB SCH (03:00)
--- NOTE | 2020-05-12 12:49 | PDOC.DS.DS ---
Provider - Provider Date of Admission: 05/10/20 03:35 Date of Discharge: 05/11/20 Admitting Provider: John Fernandez Consultations: Neurology (Dr. Estrada) Primary Care Physician: OUT OF TOWN Course - Hospital Course Hospital Course: Discharge diagnosis: 1. focal status epilepticus 2. Ischemic cerebrovascular accident 3. Acute respiratory failure 4. COVID-19 PCR test negative Hospital course: Patient is a 49-year-old gentleman who was admitted to the hospital for seizure and cerebrovascular accident after transfer from [place]. He was admitted to the intensive care unit in an intubated state. He received loading doses of Keppra and fosphenytoin. EEG was done and showed focal status epilepticus. He needed transfer to tertiary care center for video EEG continuous monitoring. He was accepted to [facility] but bed was not immediately available. On April 11 he had a witnessed seizure and was started on Vimpat. Bed was available at [facility] on May 11, 2020 and patient was transferred to [facility] for further management. Discharge destination: [facility] Total amount of time spent coordinating this discharge: 32 minutes Resuscitation Status: 05/10/20 04:00 Resuscitation Status Routine Resuscitation Status: FULL: Full Resuscitation - Labs Lab Results: 05/11/20 03:28 05/11/20 03:28 Abnormal Lab Results - Last 48 hrs 05/11/20 03:28: Potassium 3.3 L, Chloride 110 H, Creatinine 2.09 H, Albumin 3.1 L, Albumin/Globulin Ratio 1.0 L 05/11/20 03:28: RBC 4.09 L, Hgb 12.8 L, Hct 37.8 L, MCH 31.2 H, Lymphocytes % (Manual) 19 L - Physical Exam Vitals: Weight Admit Weight 182 lb Weight 185 lb 6.54 oz Most Recent Monitor Data Heart Rate from ECG 83 NIBP 165/118 NIBP BP-Mean 133 Respiration from ECG 22 SpO2 88 Physical Exam: The patient was seen and examined on the day of discharge. Please refer to my daily progress note for further details regarding this [id number] encounter. Plan - Discharge Medications Home Medications: Medication Instructions Recorded Confirmed Type Amiodarone [Cordarone] 1 tab PO DAILY 05/10/20 05/10/20 History Amlodipine [Norvasc] 10 mg PO DAILY 05/10/20 05/10/20 History Apixaban [Eliquis] 5 mg PO BID 05/10/20 05/10/20 History Aspirin [Aspirin EC] 1 tab PO DAILY 05/10/20 05/10/20 History Atorvastatin Calcium 80 mg PO DAILY 05/10/20 05/10/20 History Diltiazem HCl 90 mg PO TID 05/10/20 05/10/20 History Ergocalciferol (Vitamin D2) 1 cap PO ROUTINE 05/10/20 05/10/20 History [Vitamin D2] Famotidine [Pepcid] 20 mg PO DAILY 05/10/20 05/10/20 History Furosemide 40 mg PO DAILY 05/10/20 05/10/20 History Labetalol HCl 300 mg PO Q8HR 05/10/20 05/10/20 History Levothyroxine Sodium 50 mcg PO DAILY 05/10/20 05/10/20 History Lisinopril 10 mg PO DAILY 05/10/20 05/10/20 History Metoprolol Tartrate 100 mg PO BID 05/10/20 05/10/20 History Potassium Chloride 20 meq PO DAILY 05/10/20 05/10/20 History Sertraline HCl 75 mg PO QAM 05/10/20 05/10/20 History cloNIDine HCl 0.1 mg PO TID 05/10/20 05/10/20 History hydrALAZINE HCl 100 mg PO TID 05/10/20 05/10/20 History levETIRAcetam 1,000 mg PO BID 05/10/20 05/10/20 History traZODone HCl [Trazodone HCl] 100 mg PO HS 05/10/20 05/10/20 History Allergies: No Known Drug Allergies Allergy (Verified 05/11/20 21:18) - Follow up Plan Referrals: [facility] PHYSICIAN,OUT OF [Primary Care Provider] - 10 Days Disposition: OTHER HOSPITAL INPT Quality - Care Measures CORE MEASURES:: N/A
--- NOTE | 2020-05-12 22:42 | PQF ---
Dear : Dimas Best Date 05/13/2020 Please exercise your independent, professional judgment in responding to the clarification form. Clinical indicators are provided on the bottom of this form for your review Can you please further clarify the diagnosis of the patient? Please check appropriate box(es): [x ] Cerebral Infarction current condition [ ] History of Cerebral Infarction only [ ] Other diagnosis, please specify [ ] Unable to determine Physician Signature: Date/Time: For continuity of documentation, please document condition throughout progress notes and discharge summary. Thank You. To be completed by CDI/Coding staff for physician review: Present Clinical Indicators - Signs / Symptoms / Labs Results and Location in Medical Record [ x ] CVA evaluation H and P pg.1 [ x ] Complains severe headache and his speech seemed impaired H and P pg.1 [ x ] Right sided facial droop and left sided hemiparesis H and P pg.1 [ x ] CT scan was able to be obtained which showed an subacute right posterior parietal infarct H and P pg.1 [ x ] History of CVA in the past, Hx pf slurred speech and left sided hemiparesis H and P pg.4 [ x ] No Evidence of acute infarction Brain MRI pg.1 [ x ] Brain MRI negative for acute intracranial pathology Neuro PN pg.5 [ x ] Ischemic cerebrovascular accident DS pg.1 Present Risk Factors Results and Location in Medical Record [ x ] Respiratory failure H and P pg.2 [ x ] Hypertensive urgency H and P pg.4 [ x ] Focal status epilepticus DS pg.1 Present Treatments Results and Location in Medical Record [ x ] Neurology Consult Dr. Estrada 05/10 [ x ] IV Fluids MAR [ x ] Aspirin 300mg Oral MAR [ x ] Brain MRI Brain MRI 05/11 [ x ] Neuro check every 2hrs Consult 05/10 [ x ] Seizure precaution Consult 05/10 CDS/Medical Technicians Signature: Rakesh Way Phone #: ext [phone] Date 05/13/2020 This is a permanent part of the Medical Record [facility]
== END 2020-05-11 22:20 | disposition short-term general hospital (02) | DRG 64 ==
LOC: ERS 02:28 → CCU 03:35
PROVIDERS: ADMIT Internal Medicine; ATTEND Internal Medicine
PROC: 0BH17EZ Insertion of Endotracheal Airway into Trachea, Via Natural or Artificial Opening (ICD-10-PCS; principal; 2020-05-10)
PROC: 5A1935Z Respiratory Ventilation, Less than 24 Consecutive Hours (ICD-10-PCS; 2020-05-10)
DX: I63.9 Cerebral infarction, unspecified (principal); J96.00 Acute respiratory failure, unspecified whether with hypoxia or hypercapnia; G40.101 Localization-related (focal) (partial) symptomatic epilepsy and epileptic syndromes with simple partial seizures, not intractable, with status epilepticus; I16.1 Hypertensive emergency; G81.94 Hemiplegia, unspecified affecting left nondominant side; Z20.828 Contact with and (suspected) exposure to other viral communicable diseases; I16.0 Hypertensive urgency; I10 Essential (primary) hypertension; R29.810 Facial weakness; G93.89 Other specified disorders of brain; Z79.899 Other long term (current) drug therapy; Z79.01 Long term (current) use of anticoagulants; Z78.1 Physical restraint status
CPT/HCPCS: 36415; 36416; 36600; 70450; 70496; 70498; 70551; 80053; 80061; 80177; 80306; 82550; 82553; 82805; 83036; 83735; 84443; 84484; 85007; 85025; 85027; 85610; 85730; 93306; 94002; 94003; 95712; 95819; 95957; 96365; 96366; C9254; J1953; J2060; J2704; Q2009; Q9967; S0028; U0002